=== PATIENT | female | born 1950 | race Caucasian/White ===

== ENCOUNTER → 2019-04-12 | Outpatient (CLI) | payer MEDICARE, BC | END | disposition home or self-care (01) | LOC: RAD 09:21 → MERGE 10:00 | PROVIDERS: ATTEND Internal Medicine Gastroenterology | DX: K86.2 Cyst of pancreas (principal); K21.9 Gastro-esophageal reflux disease without esophagitis; R07.89 Other chest pain; K90.41 Non-celiac gluten sensitivity; K57.30 Diverticulosis of large intestine without perforation or abscess without bleeding; I12.9 Hypertensive chronic kidney disease with stage 1 through stage 4 chronic kidney disease, or unspecified chronic kidney disease; N18.3 Chronic kidney disease, stage 3 (moderate); F41.9 Anxiety disorder, unspecified; Z86.010 Personal history of colon polyps; E55.9 Vitamin D deficiency, unspecified; E78.00 Pure hypercholesterolemia, unspecified; Z78.0 Asymptomatic menopausal state; F34.1 Dysthymic disorder; M54.30 Sciatica, unspecified side; Z68.25 Body mass index [BMI] 25.0-25.9, adult | CPT/HCPCS: 78264; A9541 ==